=== PATIENT | female | born 1990 | race Caucasian/White ===

== ENCOUNTER 2019-08-23 13:12 | Emergency (ER) | payer BC ==
--- NOTE | 2019-08-23 13:22 | EDM.PDOC ---
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 Onset: Today, Sudden Duration: Minutes: Location: Reports: Upper Extremity, Left Quality: Reports: Pressure, Sharp Severity: Severe Improves with: Reports: None Worsens with: Reports: Movement Context: Reports: Trauma Associated Symptoms: Reports: No Other Symptoms Left Hand Pain Score (Numeric/FACES): 7 - Related Data Allergies Allergy/AdvReac Type Severity Reaction Status Date / Time banana Allergy Other Verified 08/23/19 13:21 Home Meds: Home Meds . [No Known Home Meds] 08/23/19 [History] Past Medical History - Past Health History Medical/Surgical History: Denies Medical/Surgical History Social & Family History - Family History Family Medical History: Noncontributory ED ROS GENERAL - Review of Systems Review Of Systems: Comprehensive ROS is negative, except as noted in HPI. ED EXAM, GENERAL - Physical Exam Exam: See Below Free Text/Narrative:: Alert oriented in mild painful distress. HEENT negative discharge deformity. Thorax is clear no wheezes no crackles Cardiac regular no murmur. Capillary refill is intact to the digits of the left hand with mild edema to the dorsum over the second third fourth, MCP There is ecchymosis with edema to the palmar surface of the third fourth MCP. Motion of the wrist is intact as well as to the radius ulna with no difficulty to supination pronation nor flexion extension of the wrist. No others areas, complained of or acknowledged for injury. Course - Vital Signs Last Recorded V/S: Last Vital Signs Temp 36.3 C 08/23/19 13:27 Pulse 72 08/23/19 13:27 Resp 16 08/23/19 13:27 BP 138/90 08/23/19 13:27 Pulse Ox 99 08/23/19 13:27 - Orders/Labs/Meds Orders: Active Orders 24 hr Category Date Time Status Hand Comp Min 3V Lt [CR] Stat Exams 08/23/19 13:13 Ordered Departure - Departure Time of Disposition: 13:38 Disposition: Home, Self-Care 01 Condition: Good Clinical Impression: Contusion of hand including fingers Qualifiers: Encounter type: initial encounter Laterality: left Qualified Code(s): S60.222A - Contusion of left hand, initial encounter - Discharge Information *PRESCRIPTION DRUG MONITORING PROGRAM REVIEWED*: Not Applicable *COPY OF PRESCRIPTION DRUG MONITORING REPORT IN PATIENT COLT: Not Applicable Instructions: Hand Contusion, [id number], How to Use Cold Therapy Referrals: Juarez Whitley DIRECTOR SPECIALTY [Primary Care Provider] - Forms: ED Department Discharge Additional Instructions: Ice elevate as much as possible. Tylenol or ibuprofen for pain/inflammation. Limit any strenuous use of the wrist, hand and fingers. Follow-up with your clinic if not showing significant improvement/resolution in the next week. Sepsis Event Note (ED) - Focused Exam Vital Signs: Vital Signs Temp Pulse Resp BP Pulse Ox 08/23/19 13:27 36.3 C 72 16 138/90 99 - Problem List & Annotations (1) Contusion of hand including fingers SNOMED Code(s): 7091231 Code(s): S60.229A - CONTUSION OF UNSPECIFIED HAND, INITIAL ENCOUNTER; S60.00XA - CONTUSION OF UNSP FINGER WITHOUT DAMAGE TO NAIL, INIT ENCNTR Status: Acute Priority: High Current Visit: Yes Qualifiers: Encounter type: initial encounter Laterality: left Qualified Code(s): S60.222A - Contusion of left hand, initial encounter; S60.00XA - Contusion of unspecified finger without damage to nail, initial encounter - Problem List Review Problem List Initiated/Reviewed/Updated: Yes - My Orders Last 24 Hours: My Active Orders 08/23/19 13:13 Hand Comp Min 3V Lt [CR] Stat - Assessment/Plan Last 24 Hours: My Active Orders 08/23/19 13:13 Hand Comp Min 3V Lt [CR] Stat Plan: Ice elevate as much as possible. Tylenol or ibuprofen for pain/inflammation. Limit any strenuous use of the wrist hand and fingers. Follow-up with your clinic if not showing significant improvement/resolution in the next week.
--- NOTE | 2019-08-23 14:25 | CR ---
[id number] RAD/RAD Hand Left 3V EXAM: 3 VIEWS LEFT HAND. INDICATION: TRAUMA, BLUNT FORCE DORSUM. PAIN AND SWELLING. COMPARISON: None. DISCUSSION: Acute minimally displaced fracture involving the base of the 4th metacarpal. No other fractures are identified. IMPRESSION: 1. Acute minimally displaced fracture involving the base of the 4th metacarpal. Noel Vasquez DO 08/23/19 1424 Thank you for allowing us to participate in the care of your patient.
== END 2019-08-23 13:47 | disposition home or self-care (01) ==
LOC: KA.ED 13:12
DX: S62.315A Displaced fracture of base of fourth metacarpal bone, left hand, initial encounter for closed fracture (principal); Z91.018 Allergy to other foods; W22.8XXA Striking against or struck by other objects, initial encounter; Y93.23 Activity, snow (alpine) (downhill) skiing, snowboarding, sledding, tobogganing and snow tubing
CPT/HCPCS: 29125; 73130-LT; 99283; 99283-25